=== PATIENT | female | born 1965 | race Caucasian/White ===

== ENCOUNTER → 2019-12-11 | Outpatient (CLI) | payer OTHER | LOC: M.ULTRA 12-04 11:00 → M.RAD 12-04 11:30 → M.ULTRA 08:42 | DX: Z12.31 Encounter for screening mammogram for malignant neoplasm of breast (principal); J34.89 Other specified disorders of nose and nasal sinuses; R22.42 Localized swelling, mass and lump, left lower limb ==

== ENCOUNTER → 2020-01-14 | Outpatient (CLI) | payer OTHER ==
--- NOTE | ~2020-01-14 | HEMONC ---
[place] [address] HEMATOLOGY ONCOLOGY NOTE Name: [facility] UP Room: [facility]#: [id number] Admission: 01/14/20 Attend Phys: Asaf Terrell MD Discharge: Date of : 61 Report #: [id number] THIS REPORT FOR: //name// CC: EDVIN Iniguez DATE OF SERVICE: 01/14/2020 CLINIC NOTE REASON FOR CONSULTATION: Leukocytosis. REFERRING PHYSICIAN: EDVIN Chang HISTORY OF PRESENT ILLNESS: A 54-year-old female, who has been evaluated today because of persistent leukocytosis. Her WBC was elevated at the level of 13,000 with a differential showed increase in the absolute neutrophilic count. The patient reported that she has been a smoker; however, she quit 3 months ago. Around that time, she reported significant amount of fatigue. She could barely finish her work. She used to walk on a daily basis. She reported night sweats. She lost around 60 pounds for the last 1 year, however, that was intentional. She reported right axillary lump, which waxes and wanes. This has been going on for the last few years. The patient denies any other symptoms. She reported significant amount of stress; however, she denies any vigorous exercise. REVIEW OF SYSTEMS: All systems reviewed. It was negative except the above. PAST MEDICAL HISTORY: Hypertension, dyslipidemia, diabetes mellitus, COPD, osteoarthritis, hypothyroidism, anxiety/depression. PAST SURGICAL HISTORY: Appendectomy, hysterectomy, cyst removal, hernia repair. SOCIAL HISTORY: She used to smoke a half a pack per day between the age of 15 and 54. She drinks alcohol occasionally. ALLERGIES: No known allergies. MEDICATIONS: Metformin 1000 mg twice a day, glimepiride 2 mg twice a day, Synthroid 88 mcg p.o. daily, naproxen 500 mg twice a day, Flexeril 2 tabs p.o. daily, amitriptyline 50 mg p.o. daily, lisinopril 20 mg p.o. daily, and simvastatin 10 mg p.o. daily. PHYSICAL EXAMINATION: VITAL SIGNS: Today, blood pressure is 156/96, pulse is 89, respirations 18, [place] [address] HEMATOLOGY ONCOLOGY NOTE Name: [facility] UP Room: [facility]#: [id number] Admission: 01/14/20 Attend Phys: Asaf Terrell MD Discharge: Date of : 61 Report #: [id number] temperature is 97.1, sat is 96% on room air. GENERAL: The patient was sitting in chair. She was not in acute distress. LUNGS: Clear to auscultations bilaterally. HEART: Regular rate and rhythm. S1, S2 within normal limits. ABDOMEN: The patient had significant tenderness in the left upper quadrant. LYMPHATICS: The patient does not have any cervical lymphadenopathy. There were very small questionable palpable lymph nodes on the right axilla. No groin lymph nodes. LABORATORY DATA: WBC 12.0, hemoglobin 14.1, MCV 95, neutrophils 7.2, lymphocytes 3.3, monocytes 1.1. ASSESSMENT AND PLAN: A 54-year-old female who has been evaluated because of persistent mild leukocytosis. The patient quit smoking 3 months ago. It was associated with severe fatigue and night sweats, questionable palpable lymphadenopathy in the right axilla. RECOMMENDATIONS: 1. I would like to repeat CBC with peripheral blood smear and flow cytometry, BCR-ABL. 2. Due to the symptoms of fatigue and night sweats, we will obtain a CT scan chest, abdomen, and pelvis to rule out any possibility of lymphadenopathy. We will follow up with next visit. By: [id number] Terrell MD /nt
[2020-01-14 10:20] LABS: HEMATOCRIT 42.3 % (37.0-47.0); HEMOGLOBIN 14.7 gm/dL (12.0-15.0); MCH 31.9 pg (26.0-34.0); MCHC 34.7 g/dL (28.0-37.0); MPV 7.9 fl. (7.2-11.1); NUCLEATED RBCS 0 /100WBC; PLATELET COUNT* 265 thou/uL (150-400); RDW-CV 12.5 % (10.5-14.5); WBC 12.3 thou/uL (4.0-11.0)
[2020-01-14 11:00] LABS: ALBUMIN 4.5 g/dL (3.4-5.0); CALCIUM 9.3 mg/dL (8.5-10.1); CREATININE 0.7 mg/dL (0.6-1.3); POTASSIUM 4.4 mmol/L (3.5-5.1); TOTAL BILIRUBIN 0.4 mg/dL (<0.1-1.0)
[2020-01-14 11:01] LABS: ABSOLUTE EOSINOPHILS 0.5 thou/uL (0.0-0.7); ABSOLUTE LYMPHOCYTES 2.6 thou/uL (0.8-5.3); ABSOLUTE MONOCYTES 0.7 thou/uL (0.0-1.2); ABSOLUTE NEUTROPHILS 8.5 thou/uL (1.6-8.1); PLATELET ESTIMATE ADEQUATE
[2020-01-14 11:32] LABS: ESR (SEDRATE) 15 mm/hr (0-30)
[2020-01-15 10:07] LABS: HEMOGLOBIN 14.9 g/dL (11.1-15.9)
== END ==
LOC: M.LAB 08:53 → M.RTH 08:53
PROVIDERS: Internal Medicine
DX: D72.829 Elevated white blood cell count, unspecified (principal); I10 Essential (primary) hypertension; E78.5 Hyperlipidemia, unspecified; E11.9 Type 2 diabetes mellitus without complications; J44.9 Chronic obstructive pulmonary disease, unspecified; E03.9 Hypothyroidism, unspecified; F41.9 Anxiety disorder, unspecified; Z90.49 Acquired absence of other specified parts of digestive tract

== ENCOUNTER → 2020-02-04 | Outpatient (CLI) | payer OTHER | LOC: M.CT 01-22 11:00 | DX: K76.0 Fatty (change of) liver, not elsewhere classified (principal); D72.829 Elevated white blood cell count, unspecified; R59.9 Enlarged lymph nodes, unspecified; K43.9 Ventral hernia without obstruction or gangrene; Z90.49 Acquired absence of other specified parts of digestive tract ==

== ENCOUNTER → 2020-02-18 | Outpatient (CLI) | payer OTHER ==
--- NOTE | ~2020-02-18 | HEMONC ---
[address] [address] HEMATOLOGY ONCOLOGY NOTE Name: [facility] UP Room: [facility]#: [id number] Admission: 02/18/20 Attend Phys: Asaf Terrell MD Discharge: Date of : 61 Report #: [id number] THIS REPORT FOR: //name// CC: Alejandra Alfaro N.P. DATE OF SERVICE: 02/18/2020 DIAGNOSIS: Reactive leukocytosis. SUBJECTIVE: A 54-year-old female presented today to discuss her workup for leukocytosis. The patient stated that since her last visit, she did smoke a few cigarettes. I reviewed her workup including flow cytometry, which showed no immunophenotype evidence of abnormal myeloid maturation or blast population. Also, her BCR-ABL came back negative. Also, the patient had a CT scan of chest, abdomen and pelvis, which did not show any significant findings other than mild fatty liver and small hiatal hernia. There is no evidence of lymphadenopathy or masses. I explained to the patient that at this point, the mild leukocytosis that she is having is most likely related to smoking. REVIEW OF SYSTEMS: All systems were reviewed. It was negative except the above. PAST MEDICAL, SOCIAL, AND FAMILY HISTORY: Unchanged from last visit. MEDICATIONS: List has been reviewed. PHYSICAL EXAMINATION: VITAL SIGNS: Today, blood pressure is 149/89, pulse is 98, respirations 18, temperature is 98.9, sat is 98. LABORATORY DATA: Based on the last evaluation, WBC is 12.3. Differential showed mild elevation of the neutrophils of 8.5, platelet count is 265. Hemoglobin is 14.7. ASSESSMENT AND PLAN: Reactive leukocytosis workup including flow cytometry, BCR-ABL came back negative. CT scan chest, abdomen and pelvis was negative for any abnormalities. At this point, we recommended to monitor her labs periodically by primary care physician. No need for further workup as long as her white blood cells remain in the same range. By: [id number] Terrell MD /nt
== END ==
LOC: M.RTH 04:35
DX: D72.828 Other elevated white blood cell count (principal)

== ENCOUNTER 2020-05-10 12:43 | Emergency (ER) | payer OTHER ==
[~2020-05-10] VITALS: Ht 160 cm; Wt 68.0 kg
[2020-05-10] MEDS ORDERED: NAPROSYN500 M1 PO (13:01)
[2020-05-10] MEDS ORDERED: AMITRIPTYLINE H50 M2 PO (13:01)
[2020-05-10] MEDS ORDERED: PRINIVIL20 M1 PO (13:02)
[2020-05-10] MEDS ORDERED: LEVO-T100 MCG PO (13:03)
[2020-05-10] MEDS ORDERED: GLIPIZIDE 10 MG10 MG PO (13:03)
[2020-05-10] MEDS ORDERED: GLUMETZA1000 (13:03)
[2020-05-10] MEDS ORDERED: SIMVASTATIN80 MG PO (13:03)
[2020-05-10 13:13] LABS: URINE BILIRUBIN NEGATIVE (Negative); URINE BLOOD 3+ (Negative); URINE CLARITY CLEAR; URINE COLOR YELLOW; URINE GLUCOSE-RANDOM 1+ (Negative); URINE KETONES NEGATIVE (Negative); URINE LEUKOCYTES-REFLEX NEGATIVE (Negative); URINE NITRITE-REFLEX NEGATIVE (Negative); URINE PROTEIN 2+ (Negative); URINE SPECIFIC GRAVITY >= 1.030 (1.005-1.030); URINE UROBILINOGEN 0.2 E.U./dl (0.2-1.0)
[2020-05-10 13:15] LABS: SQUAMOUS 4-10 Moderate /LPF (0-3); URINE RBC >20 Many /HPF (0-2); URINE WBC-REFLEX 6-15 Few /HPF (0-5)
[2020-05-10 13:16] LABS: CASTS None Seen /LPF (None Seen); CRYSTALS None Seen /LPF (None Seen)
[2020-05-10 13:25] LABS: ABSOLUTE BASOPHILS 0.2 thou/uL (0.0-0.2); ABSOLUTE EOSINOPHILS 0.2 thou/uL (0.0-0.7); ABSOLUTE LYMPHOCYTES 3.6 thou/uL (0.8-5.3); ABSOLUTE MONOCYTES 1.4 thou/uL (0.0-1.2); ABSOLUTE NEUTROPHILS 9.4 thou/uL (1.6-8.1); BASOPHILS 1.2 %; EOSINOPHILS 1.6 %; HEMATOCRIT 40.8 % (37.0-47.0); HEMOGLOBIN 14.3 gm/dL (12.0-15.0); LYMPHOCYTES 24.4 %; MCH 32.4 pg (26.0-34.0); MCV 92.4 fL (80.0-100.0); MONOCYTES 9.5 %; MPV 8.1 fl. (7.2-11.1); NUCLEATED RBCS 0 /100WBC; PLATELET COUNT* 237 thou/uL (150-400); POLYS 63.3 %; RBC 4.41 mil/uL (4.20-5.00); RDW-CV 12.7 % (10.5-14.5); WBC 14.8 thou/uL (4.0-11.0)
[2020-05-10 13:32] LABS: CALCIUM 8.5 mg/dL (8.5-10.1); CREATININE 0.8 mg/dL (0.6-1.3)
[2020-05-10 13:34] LABS: APTT 26.6 Seconds (25.0-31.3); PROTIME 10.4 Seconds (9.20-11.50)
[2020-05-10 13:36] LABS: ALBUMIN 4.1 g/dL (3.4-5.0); TOTAL BILIRUBIN 0.3 mg/dL (<0.1-1.0); TOTAL PROTEIN 7.7 g/dL (6.4-8.2)
[2020-05-10] MEDS ORDERED: NORCO 5-325 TA1 EAC2 PO (13:50)
[2020-05-10] MEDS ORDERED: ONDANSETRON HCL4 M2 PO (13:50)
[2020-05-10] MEDS ORDERED: KEFLEX500 M1 PO (13:50)
[2020-05-10 14:15] VITALS: BP 145/70
== END 2020-05-10 14:16 | disposition home or self-care (01) ==
LOC: M.ERS 12:43
PROVIDERS: Nurse Practitioner Family
DX: N39.0 Urinary tract infection, site not specified (principal); E11.9 Type 2 diabetes mellitus without complications; I10 Essential (primary) hypertension; J44.9 Chronic obstructive pulmonary disease, unspecified; M79.7 Fibromyalgia; M06.9 Rheumatoid arthritis, unspecified